=== PATIENT | female | born 1945 | race Caucasian/White ===

== ENCOUNTER 2018-08-01 14:46 | Emergency (ER) | payer OTHER, BC ==
[~2018-08-01] VITALS: Ht 162.6 cm; Wt 63.7 kg
[2018-08-01 14:51] VITALS: BP 148/83
--- NOTE | 2018-08-01 14:55 | NUR ---
Note undone in EDM - 08/01/18 at 1531 by MNURACR 73 YO F BIB SON W/ RIGHT SIDED FACIAL NUMBNESS AND RIGHT SIDED FACIAL "PULLING"? x 1430. PT W/ INTERMITTENT SLURRED SPEECH. PT IS AOX4 TO PERSON, PLACE, TIME, AND SITUATION. GCS=15. PERRLA. NO FACIAL/SMILE ASMMETRY. 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 PATIENT WITH STEADY GAIT. PT DENIES ANY PAIN OR SOB. RR ARE EVEN AND UNLABORED. SKIN IS WARM/DRY/COLOR APPRIORIATE FOR ETHNICITY. ER MD HOOPER BY BEDSIDE EXAMINING PT. PT CHANGED INTO GOWN AND TO CARDIAC, BP, PULSE, PULSE OX MONITORING. WILL CONTINUE TO MONITOR.
--- NOTE | 2018-08-01 14:55 | NUR ---
73 YO F BIB SON W/ RIGHT SIDED FACIAL NUMBNESS AND RIGHT SIDED FACIAL "PULLING"? x 1430. PT W/ INTERMITTENT SLURRED SPEECH. PT IS AOX4 TO PERSON, PLACE, TIME, AND SITUATION. GCS=15. PERRLA. NO FACIAL/SMILE ASMMETRY. 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 PATIENT WITH STEADY GAIT. PT DENIES ANY PAIN OR SOB. RR ARE EVEN AND UNLABORED. SKIN IS WARM/DRY/COLOR APPRIORIATE FOR ETHNICITY. ER MD HOOPER BY BEDSIDE EXAMINING PT. PT CHANGED INTO GOWN AND TO CARDIAC, BP, PULSE, PULSE OX MONITORING. WILL CONTINUE TO MONITOR.
--- NOTE | 2018-08-01 15:00 | NUR ---
Note neno in ED - 08/01/18 at 1531 by MNURACR JOHNNY HOOPER CALLED CODE BRAIN. CT CALLED. GREENHOUSE SPECIALIST JOHN NOTIFIED.
--- NOTE | 2018-08-01 15:00 | NUR ---
ER MD HOOPER CALLED CODE BRAIN. CT CALLED. CARDIAC REHABILITATION PROGRAM DIRECTOR JOHN NOTIFIED.
--- NOTE | 2018-08-01 15:03 | NUR ---
PT TO CT VIA [facility] WITH CARDIAC MONITORING WITH BRYCE STEWART.
--- NOTE | 2018-08-01 15:03 | NUR ---
Alexandro lazcano in [facility] - 08/01/18 at 1531 by ROSETTA PT TO CT VIA [facility] WITH CARDIAC MONITORING WITH BRYCE STEWART.
--- NOTE | 2018-08-01 15:11 | NUR ---
pt returned from ct via [facility] accompanied by radiology physician and Carol STEWART.
[2018-08-01 15:30] LABS: BASOPHILS # (AUTO) 0.1 K/uL (0.00-0.22); BASOPHILS % (AUTO) 0.7 % (0.0-2.0); EOSINOPHILS # (AUTO) 0.1 K/uL (0-0.4); EOSINOPHILS % (AUTO) 1.3 % (0.0-4.0); HEMATOCRIT 41.7 % (36-48); HEMOGLOBIN 13.9 g/dL (12.0-16.0); LYMPHOCYTES # (AUTO) 3.3 K/uL (2.5-16.5); LYMPHOCYTES % (AUTO) 36.1 % (20.5-51.1); MEAN CORPUSCULAR HEMOGLOBIN 29 pg (27-31); MEAN CORPUSCULAR HGB CONC 33 g/dL (33-37); MEAN CORPUSCULAR VOLUME 88.2 fL (80-94); MONOCYTES # (AUTO) 0.6 K/uL (0.8-1.0); MONOCYTES % (AUTO) 6.2 % (1.7-9.3); NEUTROPHILS % (AUTO) 55.7 % (42.2-75.2); PLATELET COUNT (AUTO) 201 K/uL (140-450); RED BLOOD CELL COUNT(AUTO) 4.73 MIL/uL (4.20-5.40); RED CELL DISTRIBUTION WIDTH 13.7 % (11.6-13.7)
--- NOTE | 2018-08-01 16:00 | NUR ---
patient with no new symptoms or complaints. nad. vss. will continue to monitor. awaiting transfer admission.
[2018-08-01 16:02] LABS: POTASSIUM 3.7 mmol/L (3.5-5.1); SODIUM SERUM 139 mmol/L (136-145)
[2018-08-01 16:03] LABS: ASPARTATE AMINOTRANSFERASE 22 U/L (15-37); CHLORIDE 104 mmol/L (98-107); CREATININE 0.9 mg/dL (0.6-1.3); GLUCOSE 104 mg/dL (74-106); TOTAL BILIRUBIN 0.4 mg/dL (0.0-1.0); UREA NITROGEN, BLOOD 7 mg/dL (7-18)
[2018-08-01 16:04] LABS: ALBUMIN 4.3 g/dL (3.4-5.0)
[2018-08-01 16:08] LABS: ANION GAP 12.8 (8-16); CARBON DIOXIDE 25.9 mmol/L (21-32)
[2018-08-01 16:10] LABS: PROTHROMBIN TIME 8.8 secs (10.8-13.4)
--- NOTE | 2018-08-01 16:30 | NUR ---
Asked er md Thornton plan of care for patient. No medication order at this time. ER md Thornton sts to monitor blood monitor and neurologically changes. Will continue to monitor.
--- NOTE | 2018-08-01 17:00 | NUR ---
family by bedside; patient with no new symptoms or complaints. nad. vss. will continue to monitor. awaiting transfer admission.
[2018-08-01 17:28] LABS: APPEARANCE,URINE SLIGHTLY HAZY (CLEAR); BLOOD, URINE TRACE (NEGATIVE); COLOR,URINE STRAW (YELLOW); UGLUCOSE NEGATIVE (NEGATIVE)
[2018-08-01 17:29] LABS: BILIRUBIN,URINE NEGATIVE (NEGATIVE); LEUKOCYTE ESTERASE ,URINE TRACE (NEGATIVE); NITRITE, URINE NEGATIVE (NEGATIVE)
[2018-08-01 17:39] LABS: RBC,URINE NONE SEEN /HPF (0-5)
--- NOTE | 2018-08-01 18:00 | NUR ---
family by bedside; patient with no new symptoms or complaints. pt denies any headache, dizziness, or pain. nad. vss. will continue to monitor. awaiting transfer admission.
--- NOTE | 2018-08-01 18:35 | NUR ---
Patient to be transferred to [facility]. Is being transferred due to higher level care. Receiving facility has accepting physician and available space. ER physician has signed transfer form. Patient or responsible democrat has agreed to transfer and signed form. Patient belongings inventoried and will be sent with patient. Copy of nursing notes, lab reports, EKG, Physicians Orders and X-rays to be sent with patient. Report called to [place] STEWART at receiving facility. [facility] ambulance service has been called for transfer. ETA is 10 mins.
[2018-08-01 18:40] VITALS: BP 110/67
--- NOTE | 2018-08-01 18:40 | NUR ---
pt left er via [facility] tamir almeida. exited er without incident.
== END 2018-08-01 18:40 | disposition short-term general hospital (02) ==
LOC: MED 14:46
DX: I61.9 Nontraumatic intracerebral hemorrhage, unspecified (principal); R07.9 Chest pain, unspecified
CPT/HCPCS: 36415; 70450; 71045; 80053; 81001; 84484; 85025; 85610; 85730; 87086; 93005; 99291; Q0092; 99284